=== PATIENT | male | born 1975 | race Caucasian/White ===

== ENCOUNTER 2019-04-08 08:32 | Emergency (ER) | payer BC, OTHER ==
[~2019-04-08] VITALS: Ht 190.5 cm; Wt 115.7 kg
[2019-04-08 08:58] LABS: Urine Bacteria NONE SEEN /hpf (None Seen); Urine Blood TRACE /uL (Negative); Urine Mucus FEW (None Seen); Urine WBC 1 /hpf (0 - 3)
[2019-04-08] MEDS ORDERED: SODIUM CHLORIDE 0.9% 1,000 ML IVB ONE (08:58)
[2019-04-08] MEDS ORDERED: ONDANSETRON HCL 4 MG/2 ML VIAL IV ONE (09:00)
[2019-04-08] MEDS ORDERED: KETOROLAC TROMETH 30 MG/ML 1ML VIAL IV ONE (09:00)
[2019-04-08] MEDS ORDERED: MORPHINE SULFATE 4 MG/ML SYR/VIAL IV ONE (09:00)
[2019-04-08 09:06] LABS: Basophils # (auto) 0.1 uL; Basophils % (auto) 0.8 % (0.0-2.0); Eosinophils # (auto) 0.2 uL; Eosinophils % (auto) 2.1 % (0.0-7.0); Hematocrit 41.4 % (41.0-53.0); Hemoglobin 14.6 g/dL (13.5-17.5); Lymphocytes # (auto) 1.3 uL; Mean Corpuscular Hemoglobin 31.6 pg (28.0-32.0); Mean Corpuscular Hgb Conc. 35.3 g/dL (32.0-36.0); Mean Corpuscular Volume 89.5 fL (80.0-100.0); Monocytes # (auto) 0.5 uL; Monocytes % (auto) 5.9 % (0.0-12.0); Neutrophils # (auto) 6.8 uL; Neutrophils % (auto) 76.2 % (37.0-80.0); Platelet Count (auto) 190 10^3/uL (140-450); Red Blood Cells 4.63 10^6/uL (4.5-5.90); Red Cell Distribution Width 12.1 % (11.8-14.3)
[2019-04-08 09:18] LABS: Albumin 3.5 g/dL (3.4-5.0); Calcium 9.3 mg/dL (8.5-10.1)
[2019-04-08 09:22] LABS: BUN/Creatinine Ratio 9.9; Bilirubin, Total 0.6 mg/dL (0.2-1.0); Total Protein 7.9 g/dL (6.4-8.2)
[2019-04-08 10:50] VITALS: BP 120/78
== END 2019-04-08 12:25 | disposition home or self-care (01) ==
LOC: ER 08:39
DX: N21.1 Calculus in urethra (principal); K80.20 Calculus of gallbladder without cholecystitis without obstruction; F12.10 Cannabis abuse, uncomplicated; R11.2 Nausea with vomiting, unspecified
CPT/HCPCS: 36415; 74176; 80053; 81001; 85025; 96361; 96374; 96375; 99284; J1885; J2270; J2405; J7030

== ENCOUNTER 2019-10-27 01:24 | Emergency (ER) | payer BC ==
[~2019-10-27] VITALS: Ht 190.5 cm; Wt 111.1 kg
[2019-10-27] MEDS ORDERED: HYDROcodone-ACET 5/325MG TAB PO ONE (01:45)
[2019-10-27 02:24] LABS: Basophils # (auto) 0.1 10 ^3/uL (0-0.2); Basophils % (auto) 0.9 % (0.0-2.0); Eosinophils # (auto) 0.4 10 ^3/uL (0-0.8); Hematocrit 43.1 % (41.0-53.0); Hemoglobin 14.4 g/dL (13.5-17.5); Lymphocytes % (auto) 27.3 % (10.0-50.0); Mean Corpuscular Hemoglobin 30.7 pg (28.0-32.0); Mean Corpuscular Hgb Conc. 33.4 g/dL (32.0-36.0); Mean Corpuscular Volume 91.9 fL (80.0-100.0); Monocytes # (auto) 0.7 10 ^3/uL (0-1.3); Monocytes % (auto) 6.2 % (0.0-12.0); Neutrophils # (auto) 6.8 10 ^3/uL (1.6-8.6); Neutrophils % (auto) 61.6 % (37.0-80.0); Platelet Count (auto) 261 10^3/uL (140-450); Red Blood Cells 4.69 10^6/uL (4.5-5.90); Red Cell Distribution Width 12.4 % (11.8-14.3)
[2019-10-27 02:31] LABS: Urine Bacteria FEW /hpf (None Seen); Urine Blood 3+ /uL (Negative); Urine Mucus FEW (None Seen); Urine Specific Gravity 1.029 (1.001-1.035); Urine WBC 1 /hpf (0 - 3)
[2019-10-27 02:40] LABS: Albumin 4.1 g/dL (3.4-5.0); Calcium 8.7 mg/dL (8.5-10.1); Potassium 3.5 mmol/L (3.5-5.1)
[2019-10-27 02:43] LABS: BUN/Creatinine Ratio 14.7; Bilirubin, Total 0.4 mg/dL (0.2-1.0); Total Protein 7.9 g/dL (6.4-8.2)
[2019-10-27] MEDS ORDERED: TAMSULOSIN HYDROCHLORIDE 0.4 MG CAP PO ONE (11:00)
[2019-10-27] MEDS ORDERED: SODIUM CHLORIDE 0.9% 1,000 ML IV ONE (11:00)
[2019-10-27] MEDS ORDERED: METOCLOPRAMIDE HCL 5MG/ml INJ 2ml VIAL IV ONE (11:00)
[2019-10-27] MEDS ORDERED: KETOROLAC TROMETH 30 MG/ML 1ML VIAL IV ONE (11:00)
[2019-10-27 11:02] VITALS: BP 131/96
== END 2019-10-27 12:56 | disposition home or self-care (01) ==
LOC: ER 01:24
DX: N13.2 Hydronephrosis with renal and ureteral calculous obstruction (principal); R11.2 Nausea with vomiting, unspecified
CPT/HCPCS: 36415; 74176; 80053; 81001; 82150; 83690; 85025; 96361; 96374; 96375; 99284; J1885; J2765

== ENCOUNTER 2024-06-22 08:43 | Inpatient (IN) | payer BC ==
[~2024-06-22] VITALS: Ht 190.5 cm; Wt 113.8 kg
--- NOTE | 2024-06-22 08:51 | ECG ---
[facility] Test Date: 2024-06-22 Test Time: 08:49:46 Pat Name: SHAHRIAR BONILLA Department: ED Room: [address] [place] [address] Gender: M Mechanical Engineering Director: : 1975 Requested By: GEORGES FAUSTIN Order Number: [id number] Reading MD: Benito Angelo Measurements Intervals [place] Rate: 74 P: -2 DC: 189 QRS: -5 QRSD: 100 T: 24 QT: 349 QTc: 388 Interpretive Statements Sinus rhythm Left atrial enlargement Baseline wander in lead(s) II,V3,V4,V5,V6 Electronically Signed On 06-23-2024 22:37:39 PDT by Benito Angelo Please click the below link to view image of tracing.
--- NOTE | 2024-06-22 09:14 | ED.PDOC ---
HPI Comments 48 year old male presents to the ED with chief complaint of chest pain. Patient reports that he has been experiencing throbbing chest pain since 746, taking 800mg of Ibuprofen with no relief. Patient relays that he has had associated lightheadedness and sweaty hands. Patient states that his dog recently on Friday. Patient denies any numbness, weakness, SOB, N/V, or radiation of pain. Chief Complaint: Chest Pain Time Seen by MD: 09:10 Primary Care Provider: NONE Reviewed Notes: Nurses Notes, Medications, Allergies Allergies: Coded Allergies: NO KNOWN ALLERGIES (Unverified , 04/08/19) Information Source: Patient Mode of Arrival: Ambulatory Severity: Moderate Timing: Hours Duration: Since onset Prehospital treatment: None Location: Chest (L) Radiation: No Radiation Quality: Other (Throbbing) Onset: At Rest Cardiac Risk Factors: None PE Risk Factors: None History of: None Past Medical History PAST MEDICAL HISTORY: Gallstones, Kidney Stones Surgical History: Hernia Repair Family History Family History (Other): kidney stones, scleroderma Social History Smoker: Non-Smoker Alcohol: Denies ETOH Use Drugs: Marijuana Lives In: Home Constitutional: denies: chills, diaphoresis, fatigue, fever, malaise, sweats, weakness, others EENTM: denies: blurred vision, double vision, ear bleeding, ear discharge, ear drainage, ear pain, ear ringing, eye pain, eye redness, hearing loss, mouth pain, mouth swelling, nasal discharge, nose bleeding, nose congestion, nose pain, photophobia, tearing, throat pain, throat swelling, voice changes, others Respiratory: denies: cough, hemoptysis, orthopnea, SOB at rest, shortness of breath, SOB with excertion, stridor, wheezing, others Cardiovascular: reports: chest pain, lightheadedness; denies: dizzy spells, diaphoresis, Dyspnea on exertion, edema, irregular heart beat, left arm pain, palpitations, PND, syncope, others Gastrointestinal: denies: abdomen distended, abdominal pain, blood streaked bowels, constipated, diarrhea, dysphagia, difficulty swallowing, hematemesis, melena, nausea, poor appetite, poor fluid intake, rectal bleeding, rectal pain, vomiting, others Genitourinary: denies: burning, dysuria, flank pain, frequency, hematuria, incontinence, penile discharge, penile sore, pain, testicle pain, testicle swelling, urgency, others Neurological: denies: dizziness, fainting, headache, left sided numbness, left sided weakness, numbness, paresthesia, pre-existing deficit, right sided numbness, right sided weakness, seizure, speech problems, tingling, tremors, weakness, others Musculoskeletal: denies: back pain, gout, joint pain, joint swelling, muscle pain, muscle stiffness, neck pain, others Integumetry: denies: bruises, change in color, change in hair/nails, dryness, laceration, lesions, lumps, rash, wounds, others Allergic/Immunocompromised: denies: Difficulty Healing, Frequent Infections, Hives, Itching, others Hematologic/Lymphatic: denies: anemia, blood clots, easy bleeding, easy bruising, swollen glands, others Endocrine: denies: excessive hunger, excessive sweating, excessive thirst, excessive urination, flushing, intolerance to cold, intolerance to heat, unexpla ined weight gain, unexplained weight loss, others Psychiatric: denies: anxiety, bipolar disorder, depression, hopeless, panic disorder, schizophrenia, sleepless, suicidal, others All Other Systems: Reviewed and Negative Physical Exam General Appearance: Moderate Distress, Normal HEENT: Normal ENT Inspection, PERRL/EOMI Neck: Full Range of Motion, Non-Tender, Normal, Normal Inspection Respiratory: Chest Non-Tender, Lungs Clear, No Accessory Muscle Use, No Respiratory Distress, Normal Breath Sounds Cardiovascular: No Edema, No JVD, No Murmur, No Gallop, Normal Peripheral Pulses, Regular Rate/Rhythm Breast Exam: Deferred Gastrointestinal: No Organomegaly, Non Tender, No Pulsatile Mass, Normal Bowel Sounds, Soft Genitalia: Deferred Pelvic: Deferred Rectal: Deferred Extremities: No calf tenderness, Normal capillary refill, Normal inspection, Normal range of motion, Non-tender, No pedal edema Musculoskeletal : Apperance: Normal Neurologic: Alert, 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 Was a procedure done?: No CP Differential Dx Differential Diagnosis: A-fib, A-Flutter, Angina, Anxiety / Panic Attack, Atrial Dysrhythmia, Electrolyte Disorder X-Ray, Labs, Meds, VS Vital Signs Date Time Temp Pulse Resp B/P (MAP) Pulse Ox O2 Delivery O2 Flow Rate FiO2 06/22/24 11:05 97.4 72 16 123/84 (97) 96 97.4 06/22/24 11:03 72 16 123/84 06/22/24 10:17 72 18 161/102 06/22/24 09:56 97.9 72 16 161/102 (121) 97 97.9 06/22/24 09:56 72 06/22/24 08:51 97.9 88 18 149/97 (114) 97 97.9 06/22/24 08:49 74 Lab Test 06/22/24 10:04 06/22/24 08:50 Range/Units Troponin I High Sensitivity < 3 L < 3 L </=54 ng/L White Blood Count 7.1 4.4-10.8 10^3/uL Red Blood Count 6.07 H 4.5-5.90 10^6/uL Hemoglobin 18.9 H 13.5-17.5 g/dL Hematocrit 55.4 H 41.0-53.0 % Mean Corpuscular Volume 91.3 80.0-100.0 fL Mean Corpuscular Hemoglobin 31.1 28.0-32.0 pg Mean Corpuscular Hemoglobin Concent 34.0 32.0-36.0 g/dL Red Cell Distribution Width 13.3 11.8-14.3 % Platelet Count 181 140-450 10^3/uL Mean Platelet Volume 8.9 6.9-10.8 fL Neutrophils (%) (Auto) 66.6 37.0-80.0 % Lymphocytes (%) (Auto) 17.7 10.0-50.0 % Monocytes (%) (Auto) 7.9 0.0-12.0 % Eosinophils (%) (Auto) 7.2 H 0.0-7.0 % Basophils (%) (Auto) 0.6 0.0-2.0 % Neutrophils # (Auto) 4.7 1.6-8.6 10 ^3/uL Lymphocytes # (Auto) 1.2 0.4-5.4 10 ^3/uL Monocytes # (Auto) 0.6 0-1.3 10 ^3/uL Eosinophils # (Auto) 0.5 0-0.8 10 ^3/uL Basophils # (Auto) 0 0-0.2 10 ^3/uL Nucleated Red Blood Cells 0.3 % Sodium Level 139 136-145 mmol/L Potassium Level 4.1 3.5-5.1 mmol/L Chloride Level 106 98-107 mmol/L Carbon Dioxide Level 24 20-31 mmol/L Anion Gap 9 5-15 Blood Urea Nitrogen 11 9-23 mg/dL Creatinine 1.21 0.700-1.30 mg/dL Glomerular Filtration Rate Calc 74 >90 mL/min BUN/Creatinine Ratio 9.1 L 10.0-20.0 Serum Glucose 94 74-106 mg/dL Calcium Level 9.9 8.7-10.4 mg/dL Current Medications Medications (Trade) Dose Ordered Sig/Rasta Route Start Time Stop Time Status Last Admin Aspirin 325 mg ONCE ONCE PO 06/22/24 09:15 06/22/24 09:16 DC 06/22/24 09:47 Morphine Sulfate 4 mg ONCE ONCE IV 06/22/24 10:00 06/22/24 10:01 DC 06/22/24 10:17 Ondansetron HCl (Zofran) 4 mg ONCE ONCE IV 06/22/24 10:00 06/22/24 10:01 DC 06/22/24 10:16 Chest XR: FINDINGS: Lines and Tubes: None Lungs: No focal consolidation. Pleura: No effusion. No pneumothorax. Cardiomediastinal contours: Unremarkable Bones: No acute osseous abnormality. IMPRESSION: No acute cardiopulmonary disease. Patient alert. Complaining of chest pain. EKG reviewed does not show any acute changes. Vitals stable. Answering questions. Chest x-ray reviewed does not show any acute changes. Was given aspirin. Was given pain medication. Was given Zofran. WBC within normal limits. Hemoglobin elevated. Possible dehydration. Establish intravenous access. Was given fluids. Cardiac marker within normal limits. Possibly will need echocardiogram. Cardiology consultation. Possible stress test. Explained to the patient. Continue cardiac monitoring. Time of 1ST Reevaluation: 10:10 Reevaluation 1ST: Unchanged Patient Education/Counseling: Diagnosis, Treatment Family Education/Counseling: No Family Present Additional Information Previous visit documents reviewed: 10/27/19 for right ureteral calculus The following tests were ordered, and results were reviewed by me: CBC, BMP, Troponin, EKG, Chest XR Additional Information was gathered from interviewing the following independent historians: None I reviewed and agreed with the following test results read by other providers: Chest XR I discussed treatment and results with medical personnel and: Patient Departure 1 Departure Time of Disposition: 12:11 Impression: Primary Impression: Chest pain of unknown etiology Additional Impression: Hypertensive urgency Disposition: ADMITTED INPATIENT Admit to: Med Surg Condition: Guarded Critical Care Note Critical Care Time?: No Stability Stability form required: No Heart Score Heart Score: Heart Score Response (Comments) Value History Moderate Suspicious 1 EKG Normal 0 Age 45-64 1 Risk Factors 1 or 2 risk factors 1 Troponin Normal limit 0 Total 3 I personally scribed for GEORGES FAUSTIN MD ([email or web address]) on 06/22/24 at 09:14. Electronically submitted by Giancarlo Beard ([email or web address]). I personally scribed for GEORGES FAUSTIN MD ([email or web address]) on 06/22/24 at 09:49. Electronically submitted by Giancarlo Beard ([email or web address]). GEORGES FAUSTIN MD Jun 22, 2024 09:14
[2024-06-22 09:28] LABS: Basophils # (auto) 0 10 ^3/uL (0-0.2); Basophils % (auto) 0.6 % (0.0-2.0); Eosinophils # (auto) 0.5 10 ^3/uL (0-0.8); Eosinophils % (auto) 7.2 % (0.0-7.0); Hematocrit 55.4 % (41.0-53.0); Hemoglobin 18.9 g/dL (13.5-17.5); Lymphocytes # (auto) 1.2 10 ^3/uL (0.4-5.4); Lymphocytes % (auto) 17.7 % (10.0-50.0); Mean Corpuscular Hemoglobin 31.1 pg (28.0-32.0); Mean Corpuscular Volume 91.3 fL (80.0-100.0); Monocytes # (auto) 0.6 10 ^3/uL (0-1.3); Monocytes % (auto) 7.9 % (0.0-12.0); Neutrophils # (auto) 4.7 10 ^3/uL (1.6-8.6); Neutrophils % (auto) 66.6 % (37.0-80.0); Nucleated Red Blood Cells % 0.3 %; Platelet Count (auto) 181 10^3/uL (140-450); Red Blood Cells 6.07 10^6/uL (4.5-5.90); Red Cell Distribution Width 13.3 % (11.8-14.3); White Blood Cell 7.1 10^3/uL (4.4-10.8)
[2024-06-22 09:32] LABS: Chloride 106 mmol/L (98-107); Potassium 4.1 mmol/L (3.5-5.1); Sodium 139 mmol/L (136-145)
[2024-06-22 09:33] LABS: Anion Gap 9 (5-15); Carbon Dioxide 24 mmol/L (20-31)
[2024-06-22 09:34] LABS: Calcium 9.9 mg/dL (8.7-10.4)
[2024-06-22 09:38] LABS: Glucose 94 mg/dL (74-106)
--- NOTE | 2024-06-22 09:38 | DVH ---
EXAM: XY CHEST PORTABLE Indication: sob Technique: Single frontal view of the chest was obtained Comparison: None FINDINGS: Lines and Tubes: None Lungs: No focal consolidation. Pleura: No effusion. No pneumothorax. Cardiomediastinal contours: Unremarkable Bones: No acute osseous abnormality. IMPRESSION: No acute cardiopulmonary disease.
[2024-06-22 09:39] LABS: BUN/Creatinine Ratio 9.1 (10.0-20.0); Blood Urea Nitrogen 11 mg/dL (9-23)
[2024-06-22] MEDS: ASPirin 325 MG TAB PO ONE (09:47)
[2024-06-22] MEDS: ONDANSETRON HCL 4 MG/2 ML VIAL IV ONE (10:16)
[2024-06-22] MEDS: MORPHINE SULFATE 4 MG/ML SYR/VIAL IV ONE (10:17)
[2024-06-22 11:05] VITALS: TEMP 97.4
[2024-06-22] MEDS ORDERED: ACETAMINOPHEN 325 MG TAB PO PRN (13:30)
[2024-06-22] MEDS ORDERED: DOCUSATE SOD 100 MG CAP PO PRN (13:30)
[2024-06-22] MEDS ORDERED: NITROGLYCERIN 0.4 MG SL TAB SL PRN (13:30)
[2024-06-22] MEDS ORDERED: MORPHINE SULFATE INJ 2 MG/ml SYRG IV PRN (13:30)
[2024-06-22] MEDS ORDERED: HYDROcodone-ACET 5/325MG TAB PO PRN (13:30)
[2024-06-22] MEDS ORDERED: ONDANSETRON HCL 4 MG/2 ML VIAL IV PRN (13:30)
[2024-06-22] MEDS: SODIUM CHLORIDE 0.9% 1,000 ML IV ONE (14:00)
[2024-06-22] MEDS ORDERED: ASPirin 81 mg TAB PO ONE (14:00)
--- NOTE | 2024-06-22 14:03 | DVHHP2 ---
History of Present Illness Reason for Visit: Chest pain History of Present Illness Darien Pate is a 48-year-old male with no significant past medical history who comes in with complaints of chest pain. Patient states he was at work this morning about 0745, walking around when he suddenly had a stabbing/pressure chest pain. He states the pain radiated to his arms, he became weak, diaphoretic, had numbness and tingling in his arms. He had a meeting at 0800, so he thought he could wait it out. By 0830 he decided to come to the hospital. Patient states he sees his primary care provider routinely and usually has normal BP. He has been under stress from his dog passing away last Friday. Renal/: Other (kidney stones) Past Surgical History: Hernia Repair (x 2) Smoke: No ALCOHOL: none Drugs: Marijuana Lives: with Family Domestic Violence: Neg Review of Systems Constitutional: No: Fever, Chills, Sweats, Weakness, Malaise, Other Eyes: No: Pain, Vision change, Conjunctivae inflammation, Eyelid inflammation, Other, Redness ENT: No: Ear pain, Ear discharge, Nose pain, Nose discharge, Nose congestion, Mouth pain, Mouth swelling, Throat pain, Throat swelling, Other Respiratory: No: Cough, Dry, Shortness of breath, SOB with excertion, Wheezing, Hemoptysis, Pleuritic Pain, Sputum, Wheezing, Other Cardiovascular: Chest Pain, Lt Headedness, Other (diaphoresis); No: Palpitations, Orthopnea, Paroxysmal Noc. Dyspnea, Edema Gastrointestinal: No: Nausea, Vomiting, Abdominal Pain, Diarrhea, Constipation, Melena, Hematochezia, Other Genitourinary: No Dysuria, No Frequency, No Incontinence, No Hematuria, No Retention, No Other Musculoskeletal: No: other, neck pain, shoulder pain, arm pain, back pain, hand pain, leg pain, foot pain Skin: No: Rash, Lesions, Jaundice, Bruising, Other Neurological: Numbness (tingling in bilateral hands); No: Weakness, Incoordination, Change in speech, Confusion, Seizures, Other Allergies: Coded Allergies: NO KNOWN ALLERGIES (Unverified , 04/08/19) Medications Current Medications Medications Dose Ordered Sig/Rasta Route Start Time Stop Time Status Last Admin Dose Admin Acetaminophen/ Hydrocodone Bitart 1 tab Q4HP PRN PO 06/22/24 13:30 UNV Ondansetron HCl 4 mg Q4HP PRN IV 06/22/24 13:30 UNV Docusate Sodium 100 mg BIDPRN PRN PO 06/22/24 13:30 UNV Acetaminophen 650 mg Q6HP PRN PO 06/22/24 13:30 UNV Nitroglycerin 0.4 mg Q5MINP PRN SL 06/22/24 13:30 UNV Morphine Sulfate 2 mg Q30M PRN IV 06/22/24 13:30 UNV Exam Vital Signs Vital Signs Date Time Temp Pulse Resp B/P (MAP) Pulse Ox O2 Delivery O2 Flow Rate FiO2 06/22/24 11:05 97.4 72 16 123/84 (23) 96 97.4 General Appearance: Alert, Oriented X3, Cooperative, mild distress HEENT: Atraumatic, PERRLA, Mucous membr. moist/pink Respiratory: Clear to auscultation, Normal air movement Cardiovascular: Regular rate, Normal S1, Normal S2, No murmurs Abdominal: Normal bowel sounds, Soft, No tenderness, No hepatospenomegaly Extremities: No clubbing, No cyanosis, No edema, Normal pulses, No tenderness /swelling Skin: No rashes, No breakdown, No significant lesion Neuro: Normal gait, Normal speech, Strength at 5/5 X4 ext Psych/Mental Status: Mental status NL, Mood NL Labs/Xrays Labs Test 06/22/24 10:04 06/22/24 08:50 Range/Units Troponin I High Sensitivity < 3 L </=54 ng/L White Blood Count 7.1 4.4-10.8 10^3/uL Red Blood Count 6.07 H 4.5-5.90 10^6/uL Hemoglobin 18.9 H 13.5-17.5 g/dL Hematocrit 55.4 H 41.0-53.0 % Mean Corpuscular Volume 91.3 80.0-100.0 fL Mean Corpuscular Hemoglobin 31.1 28.0-32.0 pg Mean Corpuscular Hemoglobin Concent 34.0 32.0-36.0 g/dL Red Cell Distribution Width 13.3 11.8-14.3 % Platelet Count 181 140-450 10^3/uL Mean Platelet Volume 8.9 6.9-10.8 fL Neutrophils (%) (Auto) 66.6 37.0-80.0 % Lymphocytes (%) (Auto) 17.7 10.0-50.0 % Monocytes (%) (Auto) 7.9 0.0-12.0 % Eosinophils (%) (Auto) 7.2 H 0.0-7.0 % Basophils (%) (Auto) 0.6 0.0-2.0 % Neutrophils # (Auto) 4.7 1.6-8.6 10 ^3/uL Lymphocytes # (Auto) 1.2 0.4-5.4 10 ^3/uL Monocytes # (Auto) 0.6 0-1.3 10 ^3/uL Eosinophils # (Auto) 0.5 0-0.8 10 ^3/uL Basophils # (Auto) 0 0-0.2 10 ^3/uL Nucleated Red Blood Cells 0.3 % Sodium Level 139 136-145 mmol/L Potassium Level 4.1 3.5-5.1 mmol/L Chloride Level 106 98-107 mmol/L Carbon Dioxide Level 24 20-31 mmol/L Anion Gap 9 5-15 Blood Urea Nitrogen 11 9-23 mg/dL Creatinine 1.21 0.700-1.30 mg/dL Glomerular Filtration Rate Calc 74 >90 mL/min BUN/Creatinine Ratio 9.1 L 10.0-20.0 Serum Glucose 94 74-106 mg/dL Calcium Level 9.9 8.7-10.4 mg/dL EXAM: XY CHEST PORTABLE FINDINGS: Lines and Tubes: None Lungs: No focal consolidation. Pleura: No effusion. No pneumothorax. Cardiomediastinal contours: Unremarkable Bones: No acute osseous abnormality. IMPRESSION: No acute cardiopulmonary disease. Assessment/Plan Assessment/Plan Assessment: Hypertensive urgency, Chest pain, Plan: Admit to Tele, Cardiology consult, ECHO, Antihypertensives, IV hydration, Lipid panel, A1c, TSH, Start ASA and statin, Plan discussed with: Patient My Orders Orders - DICK LIVINGSTON Procedure Category Date Status Time Admit ADMIT 06/22/24 Transmitted 13:30 Code Status CODE 06/22/24 Transmitted 13:30 2 Gm Sodium Diet DIET 06/22/24 Transmitted Lunch Hydrocodone-Acet PHA 06/22/24 Logged 5/325mg Tab ([place] 13:30 Ondansetron Hcl PHA 06/22/24 Logged (Zofran) 13:30 Docusate Sodium PHA 06/22/24 Logged Capsule (Colace 13:30 Complete Blood Count LAB 06/23/24 Verified 04:00 Comprehensive LAB 06/23/24 Verified Metabolic Panel 04:00 Echo 2d Mode Cardiac US 06/22/24 Logged DOP 13:30 Acetaminophen Tablet PHA 06/22/24 Logged (Tylenol Tablet) 13:30 Nitroglycerin PHA 06/22/24 Logged Sublingual (Ntrostat 13:30 Morphine Sulfate PHA 06/22/24 Logged Injection 13:30 Stat Ekg For Chest [facility] 06/22/24 In Process Pain 13:30 Notify Md Of Changes [facility] 06/22/24 In Process From Base 13:30 Biological Aide For [facility] 06/22/24 In Process 24 Hours 13:30 Emergency Dysrhythmia [facility] 06/22/24 In Process Protocol 13:30 Rhythm Strips Once [facility] 06/22/24 In Process Every Shift 13:30 Oxygen By Nasal RT 06/22/24 Transmitted Cannula 13:30 Sodium Chloride 0.9% PHA 06/22/24 Logged 14:00 Amlodipine Tablet [facility] 06/22/24 Logged (Norvasc Tablet) 14:00 * Cardiology Consult CONS 06/22/24 Verified 13:48 Date of Service: Jun 22, 2024 Billing Provider: DICK LIVINGSTON Common Visit Codes: [id number] INP/OBS CARE (MOD) DICK LIVINGSTON Jun 22, 2024 14:03
[2024-06-22 14:41] LABS: Cholesterol 164 mg/dL (< 200)
[2024-06-22 14:42] LABS: HDL Cholesterol 36 mg/dL (40-59); LDL Cholesterol 109 mg/dL (< 100); Triglycerides 172 mg/dL (< 150)
[2024-06-22 14:50] VITALS: BP 133/82; PULSE 69; RESP 18; O2SAT 97
[2024-06-22] MEDS: amLODIPine BESYLATE 5 MG TAB PO ONE (14:55)
--- NOTE | 2024-06-22 15:48 | DVHSR ---
APPROVED REPORT EXAM: Two-dimensional and M-mode echocardiogram with Doppler and color Doppler. Blood Pressure: 123/84 mmHg INDICATION hypertensive emergency RISK FACTORS Height: 6'3, Weight: 250 DIMENSIONS LVDd5.0 (3.8-5.7cm)LA (2D)3.3 (1.9-4.0cm)Aortic Root3.6 (2.0-3.7cm) LVDs3.3 (2.5-4.0cm)LA (MM) (1.9-4.0cm)Aortic Cusp Exc1.8 (1.5-2.0cm) EF (%) 60.0 (55-70%)Rt. Atrium3.3 (1.9-4.0cm)Asc. Aorta3.8 cm IVSd1.1 (0.7-1.1cm)RV (D)3.5 (1.8-2.4cm) PWd0.9 (0.7-1.1cm) Mitral Valve MitralMitral Stenosis E wave0.92m/sMV Mean GR.mmHg A wave0.89m/sMV Peak GR.86mmHg E/A ratio1.02D MVAcm2 DECEL [id number] 1/2 Timems Aortic Valve Aortic ValveAortic Stenosis V11.12m/Sherin Mean GR.3mmHg V21.30m/Sherin Peak GR.7mmHg LVOT Diameter2.3 (1.8-2.4cm)Doppler AVA3.58cm2 Pulmonic Valve V20.98m/s Conclusion Normal biventricular size and systolic function. LVEF 55-60%. Normal wall motion. Normal diastolic fu nction. No significant valvular disease. Trace MR. Unable to assess RVSP due to insufficient TR jet. Normal IVC. No pericardial effusion.
--- NOTE | 2024-06-22 17:38 | DVHINCON2 ---
[facility] 06/22/24 1738: Date Seen: Jun 22, 2024 Referring Physician ERNESTO Yun Reason for Consultation Chest pain History of Present Illness This is a 48-year-old man who presented to the emergency room with a chief complaint of chest pain at 0745 today. Per patient he was sitting down at the onset of symptoms. Describes his chest pain as substernal, sharp/squeezing in nature, constant, and associated with transient SOB/dizziness. The patient also reports he was unable to speak words out loud for a few seconds. Recent stressful events includes his dog dying recently. He underwent a 12 lead electrocardiogram revealing a normal sinus rhythm without evidence of ischemia. Serial troponin levels are negative. Denies family history for cardiovascular disease. Denies any pertinent history or active prescribed medications. Admits to cannabinoid use and e-cigarette smoking. Past Medical History Past medical history reviewed. No other significant than mentioned above. Past Surgical History Hernia repair Family History Family history reviewed. Not significant for cardiovascular disease. Social History Admits to E-cigarette use. Admits to cannabinoid use. Denies any use of alcohol use. Allergies: Coded Allergies: NO KNOWN ALLERGIES (Unverified , 04/08/19) Home Meds Denies any active prescribed medications. Current Medications Current Medications Medications (Trade) Dose Ordered Sig/Rasta Route PRN Reason Start Time Stop Time Status Last Admin Acetaminophen/ Hydrocodone Bitart ([place] 5/325MG Tab) 1 tab Q4HP PRN PO MODERATE PAIN (4-6 PAIN SCALE) 06/22/24 13:30 Ondansetron HCl (Zofran) 4 mg Q4HP PRN IV NAUSEA / VOMITING 06/22/24 13:30 Docusate Sodium (Colace Capsule) 100 mg BIDPRN PRN PO FOR CONSTIPATION 06/22/24 13:30 Acetaminophen (Tylenol Tablet) 650 mg Q6HP PRN PO PAIN SCALE 1-3 OR TEMP>100.4 06/22/24 13:30 Nitroglycerin (Ntrostat Sublingual) 0.4 mg Q5MINP PRN SL FOR CHEST PAIN 06/22/24 13:30 Morphine Sulfate 2 mg Q30M PRN IV FOR CHEST PAIN 06/22/24 13:30 Aspirin 81 mg DAILY PO 06/23/24 10:00 Atorvastatin Calcium (Lipitor) 20 mg HS PO 06/22/24 22:00 Review of Systems Constitutional: No symptom reported Ears, Nose, & Throat: No symptom reported Eyes: No symptom reported Neurological: No symptoms reported Pulmonary/Respiratory: No symptom reported Cardiovascular: Chest pain Gastrointestinal: No symptom reported Genitourinary: No symptom reported Musculoskeletal: No symptom reported Skin: No symptom reported Psychiatric: No symptom reported Endocrine: No symptom reported Hemotologic/Lymphatic: No symptom reported Vital Signs Vital Signs Date Time Temp Pulse Resp B/P (MAP) Pulse Ox O2 Delivery O2 Flow Rate FiO2 06/22/24 14:55 133/82 06/22/24 14:50 69 18 97 06/22/24 11:05 97.4 97.4 Physical Exam General Appearance: Cooperative. Well developed. Obese. In no acute distress Head Exam: Normal inspection Neck Exam: Normal inspection. Non-tender. Normal alignment Pulmonary/Respiratory: Chest non-tender. Clear bilateral breath sounds Cardiovascular/Chest: Regular rate and rhythm. S1, S2. NSR. No murmurs. No JVD. Peripheral Pulses: 2+ Radial (R). 2+ Radial (L). 2+ Pedal (R). 2+ Pedal (L) Abdominal Exam: Normal bowel sounds. Soft. Nontender. No hepatospenomegaly. No masses Ankle Exam: Negative ankle edema Lower extremities: Negative lower extremity edema Neuro/Mental Status: A&O x4. Coherent Thoughts/Psych: Normal thought pattern. Appropriate mood and affect. Good judgement and insight Appearance: In no acute distress Skin Exam: Normal inspection. Normal color. Warm. Dry Labs/Diagnostic Data Labs Test 06/22/24 10:04 06/22/24 08:50 Range/Units Troponin I High Sensitivity < 3 L </=54 ng/L White Blood Count 7.1 4.4-10.8 10^3/uL Red Blood Count 6.07 H 4.5-5.90 10^6/uL Hemoglobin 18.9 H 13.5-17.5 g/dL Hematocrit 55.4 H 41.0-53.0 % Mean Corpuscular Volume 91.3 80.0-100.0 fL Mean Corpuscular Hemoglobin 31.1 28.0-32.0 pg Mean Corpuscular Hemoglobin Concent 34.0 32.0-36.0 g/dL Red Cell Distribution Width 13.3 11.8-14.3 % Platelet Count 181 140-450 10^3/uL Mean Platelet Volume 8.9 6.9-10.8 fL Neutrophils (%) (Auto) 66.6 37.0-80.0 % Lymphocytes (%) (Auto) 17.7 10.0-50.0 % Monocytes (%) (Auto) 7.9 0.0-12.0 % Eosinophils (%) (Auto) 7.2 H 0.0-7.0 % Basophils (%) (Auto) 0.6 0.0-2.0 % Neutrophils # (Auto) 4.7 1.6-8.6 10 ^3/uL Lymphocytes # (Auto) 1.2 0.4-5.4 10 ^3/uL Monocytes # (Auto) 0.6 0-1.3 10 ^3/uL Eosinophils # (Auto) 0.5 0-0.8 10 ^3/uL Basophils # (Auto) 0 0-0.2 10 ^3/uL Nucleated Red Blood Cells 0.3 % Sodium Level 139 136-145 mmol/L Potassium Level 4.1 3.5-5.1 mmol/L Chloride Level 106 98-107 mmol/L Carbon Dioxide Level 24 20-31 mmol/L Anion Gap 9 5-15 Blood Urea Nitrogen 11 9-23 mg/dL Creatinine 1.21 0.700-1.30 mg/dL Glomerular Filtration Rate Calc 74 >90 mL/min BUN/Creatinine Ratio 9.1 L 10.0-20.0 Serum Glucose 94 74-106 mg/dL Hemoglobin A1c 4.7 <5.7 % A1C Calcium Level 9.9 8.7-10.4 mg/dL Triglycerides Level 172 H < 150 mg/dL Cholesterol Level 164 < 200 mg/dL LDL Cholesterol 109 H < 100 mg/dL HDL Cholesterol 36 L 40-59 mg/dL Thyroid Stimulating Hormone (TSH) 0.94 0.55-4.78 uIU/mL Assessment Noncardiac chest pain Dyslipidemia, newly diagnosed Cannabinoid/E-cigarette use Obesity Plan/Recommendation (Dr. Coulter) A transthoracic echocardiogram revealed an LVEF of 55-60% with normal wall motion and normal diastolic function. Serial troponin levels are negative. Twelve lead electrocardiogram is unremarkable. Heart Score is low for major cardiac events. Consider an outpatient stress test if deemed necessary. Continue lipid lowering agent. There is no further cardiac workup indicated at this time. Kindly call if in need to re-consult. Thank you for allowing us to participate in this patient's care. This medical document was created using an electronic medical record system with voice recognition software and computerized dictation system. Although this document has been carefully reviewed, there might still be some phonetic and typographical errors. Occasional wrong-word or ``sound-alike substitutions may have occurred due to the inherent limitations of voice recognition software. These areas are purely typographical due to imperfections of the software programs and do not reflect any compromise in the patient's medical care. Please read the chart carefully and recognize, using context, where these substitutions have occurred. Plan discussed with: Patient, Other NYHA Physical activity limitations: NA Date of Service: Jun 22, 2024 Billing Provider: [facility] Common Codes: 10940-[id number] INP/OBS CARE (High) RITO MASON DO 06/22/24 1938: Date Seen: Jun 22, 2024 Allergies: Coded Allergies: NO KNOWN ALLERGIES (Unverified , 04/08/19) Plan/Recommendation The patient was seen and discussed with Sara Lockett NP. I agree with her Assessment and Plan, which was formulated with me. Plan discussed with: Patient Date of Service: Jun 22, 2024 Billing Provider: RITO MASON DO [facility] Common Codes: 39310-PSHFTIO INP/OBS CARE (High) [facility] Jun 22, 2024 17:38 RITO MASON DO Jun 22, 2024 19:38
[2024-06-22] MEDS ORDERED: ATORVASTATIN 20 MG TAB PO SCH (22:00)
[2024-06-23] MEDS ORDERED: ASPirin 81 mg TAB PO SCH (10:00)
== END 2024-06-22 18:00 | disposition left against medical advice (07) | DRG 305 ==
LOC: ER 08:43 → OVERFLOW 13:30
PROVIDERS: ADMIT Nurse Practitioner Family; ATTEND Nurse Practitioner Family
DX: I16.0 Hypertensive urgency (principal); E78.5 Hyperlipidemia, unspecified; K80.20 Calculus of gallbladder without cholecystitis without obstruction; Z53.29 Procedure and treatment not carried out because of patient's decision for other reasons; F17.210 Nicotine dependence, cigarettes, uncomplicated; E66.9 Obesity, unspecified; Z87.442 Personal history of urinary calculi; Z84.1 Family history of disorders of kidney and ureter; Z79.899 Other long term (current) drug therapy; Z68.31 Body mass index [BMI] 31.0-31.9, adult
CPT/HCPCS: 36415; 71045; 80048; 80061; 83036; 84443; 84484; 85025; 93005; 93306; 96374; 96375; G0378; J2405